=== PATIENT | female | born 1990 | race Caucasian/White ===

== ENCOUNTER 2024-01-11 11:37 | Emergency (ER) | payer MEDICAID ==
[~2024-01-11] VITALS: Ht 165.1 cm; Wt 114.8 kg
[2024-01-11 12:03] VITALS: TEMP 99.1
[2024-01-11 14:25] VITALS: BP 132/91; PULSE 74; RESP 16; O2SAT 98
== END 2024-01-11 14:32 | disposition home or self-care (01) ==
LOC: ER 11:37
DX: S93.692A Other sprain of left foot, initial encounter (principal); W18.39XA Other fall on same level, initial encounter; Y93.89 Activity, other specified; Y92.89 Other specified places as the place of occurrence of the external cause; Y99.8 Other external cause status
CPT/HCPCS: 29515; 73564; 73610; 99284